=== PATIENT | female | born 2000 | race Caucasian/White ===

== ENCOUNTER 2020-04-23 06:26 | Emergency (ER) | payer BC ==
[2020-04-23 07:51] LABS: ABSOLUTE BASOPHILS # (AUTO) 0.1 10^3/uL (0.0-0.2); ABSOLUTE EOSINOPHILS # (AUTO) 0.1 10^3/uL (0.0-0.6); ABSOLUTE LYMPHOCYTES (AUTO) 1.7 10^3/uL (0.5-4.7); ABSOLUTE MONOCYTES (AUTO) 0.7 10^3/uL (0.1-1.4); ABSOLUTE NEUT (AUTO) 5.2 10^3/uL (1.7-8.2); BASOPHILS % (AUTO) 0.7 % (0-2); EOSINOPHILS % (AUTO) 1.9 % (0-6); HEMATOCRIT 39.9 % (36.0-47.0); LYMPHOCYTES % (AUTO) 21.2 % (13-45); MEAN CORPUSCULAR HEMOGLOBIN 32.4 pg (27.0-33.4); MEAN CORPUSCULAR HGB CONC 35.1 g/dL (32.0-36.0); MEAN CORPUSCULAR VOLUME 92 fl (80-97); MONOCYTES % (AUTO) 9.6 % (3-13); PLATELET COUNT 284 10^3/uL (150-450); RED BLOOD COUNT 4.34 10^6/uL (3.72-5.28); RED CELL DISTRIBUTION WIDTH 12.4 % (11.5-14.0); SEGMENTED NEUTROPHILS % (AUTO) 66.6 % (42-78); TOTAL CELLS COUNTED % (AUTO) 100 %; WHITE BLOOD COUNT 7.8 10^3/uL (4.0-10.5)
[2020-04-23 08:16] LABS: ALBUMIN 4.2 g/dL (3.5-5.0); ALKALINE PHOSPHATASE 79 U/L (38-126); ANION GAP 7 (5-19); ASPARTATE AMINO TRANSFERASE 21 U/L (14-36); BILIRUBIN,DIRECT 0.1 mg/dL (0.0-0.4); BILIRUBIN,TOTAL 0.4 mg/dL (0.2-1.3); BLOOD UREA NITROGEN 18 mg/dL (7-20); CALCIUM 9.5 mg/dL (8.4-10.2); CARBON DIOXIDE 27 mmol/L (22-30); CHLORIDE 104 mmol/L (98-107); GLUCOSE 101 mg/dL (75-110); POTASSIUM 4.2 mmol/L (3.6-5.0); TOTAL PROTEIN 7.8 g/dL (6.3-8.2)
[2020-04-23 08:44] LABS: APPEARANCE,URINE CLOUDY; BILIRUBIN,URINE NEGATIVE (NEGATIVE); COLOR,URINE YELLOW; GLUCOSE, URINE NEGATIVE (NEGATIVE); KETONES,URINE NEGATIVE (NEGATIVE); LEUKOCYTE ESTERASE,URINE SMALL (NEGATIVE); NITRITE,URINE NEGATIVE (NEGATIVE); PROTEIN,URINE 30 mg/dL (NEGATIVE); URINE SPECIFIC GRAVITY 1.025; UROBILINOGEN,URINE NEGATIVE mg/dL (<2.0)
--- NOTE | 2020-04-23 08:58 | ER Document Report ---
ED GI/ - General Chief Complaint: Abdominal Pain Stated Complaint: CRAMPING AND BLLEDING Time Seen by Provider: 04/23/20 08:35 Notes: CHIEF COMPLAINT: Pelvic pain and vaginal bleeding HPI: 19-year-old female recently treated in [place] for PID with multiple antibiotics presenting for evaluation of pelvic pain in the right ovarian region with some abnormal vaginal bleeding and discharge today. Patient finished doxycycline for 5 days ago. States she saw the BURN TABLE OPERATOR in [place] for 5 days ago. She states that she was concerned about the continued discomfort so decided to come in for evaluation today. She has not had nausea vomiting or fever. ROS: See HPI - all other systems were reviewed and are otherwise negative Constitutional: no fever or recent illness GI: no vomiting, no diarrhea : no dysuria, + vaginal discharge Integumentary: no rash Allergy: no hives MEDICATIONS: I agree with the patient medications as charted by the RN. ALLERGIES: I agree with the allergies as charted by the RN. PAST MEDICAL HISTORY/PAST SURGICAL HISTORY: Reviewed and agree as charted by RN. SOCIAL HISTORY: Reviewed and agree as charted by RN. FAMILY HISTORY: No significant familial comorbid conditions directly related to patient complaint EXAM: Reviewed vital signs as charted by RN. CONSTITUTIONAL: Alert and oriented and responds appropriately to questions. Well-appearing; well-nourished HEAD: Normocephalic; atraumatic EYES: Conjunctivae clear, sclerae non-icteric ENT: normal nose; no rhinorrhea; moist mucous membranes; pharynx without lesions noted NECK: Supple without meningismus CARD: symmetric distal pulses RESP: Normal chest excursion without splinting or tachypnea ABD/GI: Normal bowel sounds; non-distended; soft, mild tenderness across the suprapubic and right pelvis on palpation, no rebound, no guarding; no palpable organomegaly or masses : Female nurse windows systems engineer present. External genitalia normal. No skin lesions noted. Pelvic Exam: No active bleeding scant amount of bright red blood in the vaginal vault. No purulent discharge. Cervix appears normal. Positive CMT. No lesions or masses. Uterus normal size and non tender. Right/Left adnexa normal size and moderately tender on the right r. BACK: The back appears normal and is non-tender to palpation, there is no CVA tenderness EXT: Normal ROM in all joints; non-tender to palpation; no cyanosis, no effusions, no edema SKIN: Normal color for age and race; warm; dry; good turgor; no acute lesions noted NEURO: Moves all extremities equally; Motor and sensory function intact PSYCH: The patient's mood and manner are appropriate. Grooming and personal hygiene are appropriate. MDM: 19-year-old female recently treated for PID presenting for pelvic pain with abnormal vaginal bleeding. Had abnormal vaginal bleeding a month ago as well. Initial screening labs do not show acute abnormalities. She is tender on her pelvic exam. Awaiting ultrasound report to evaluate for TOA although torsion less likely - Related Data Allergies/Adverse Reactions: No Known Allergies Allergy (Unverified 04/23/20 06:40) Past Medical History - Social History Smoking Status: Never Smoker Frequency of alcohol use: Occasional Drug Abuse: None Family History: Reviewed & Not Pertinent Physical Exam - Vital signs Vitals: Temp Pulse Resp BP Pulse Ox 98.2 F 97 16 113/66 100 04/23/20 06:35 04/23/20 06:35 04/23/20 06:35 04/23/20 06:35 04/23/20 06:35 Course - Re-evaluation Re-evalutation: 04/23/20 10:54 Patient appears to have both UTI, vaginitis and questionable PID she states she finished her antibiotics 3 weeks ago and is still having symptoms. She indicates that she will follow with her [facility] BURN TABLE OPERATOR providers. Patient will be started on Flagyl and doxycycline for PID, I will add a culture to the urine as she will be on doxycycline to see if she needs to have another antibiotic added for this. We will not start her on 3 antibiotics at this time pending her culture results. She will follow up with her DRIVE TESTER in 1 to 2 days for recheck - Vital Signs Vital signs: Temp Pulse Resp BP Pulse Ox 98.2 F 97 16 113/66 100 04/23/20 06:35 04/23/20 06:35 04/23/20 06:35 04/23/20 06:35 04/23/20 06:35 - Laboratory Results Result Diagrams: 04/23/20 07:41 04/23/20 07:41 Laboratory Results Interpreted: 04/23/20 07:58 Urine Protein 30 H Urine Blood MODERATE H Ur Leukocyte Esterase SMALL H Critical Laboratory Results Reviewed: No Critical Results - Radiology Results Critical Radiology Results Reviewed: No Critical Results Discharge - Discharge Clinical Impression: PID (acute pelvic inflammatory disease) UTI (urinary tract infection) Qualifiers: Urinary tract infection type: acute cystitis Hematuria presence: with hematuria Qualified Code(s): N30.01 - Acute cystitis with hematuria Vaginitis Qualifiers: Chronicity: acute Qualified Code(s): N76.0 - Acute vaginitis Condition: Stable Disposition: HOME, SELF-CARE Additional Instructions: Follow-up with your BURN TABLE OPERATOR as discussed and 2 days by phone to discuss further evaluation and management. Take the antibiotics and pain medications as prescribed no driving if taking narcotics for pain. If you have worsening symptoms, fever, vomiting return to the emergency department for reevaluation Prescriptions: Doxycycline Monohydrate 100 mg PO BID #28 capsule Metronidazole [Flagyl 500 mg Tablet] 500 mg PO BID #28 tablet Hydrocodone/Acetaminophen [Welsh 5-325 mg Tablet] 1 tab PO Q4 PRN #15 tablet PRN Reason:
[2020-04-23 09:54] LABS: BACTERIA (WET MOUNT) 3+ BACTERIA SEEN; RBCS (WET MOUNT) 1+ RBCS SEEN; T.VAGINALIS (WET MOUNT) NO TRICHOMONAS SEEN; WBCS (WET MOUNT) NO WBCS SEEN; YEAST (WET MOUNT) NO YEAST SEEN
[2020-04-23 09:55] LABS: EPITHELIALS (WET MOUNT) 3+ EPITHELIALS SEEN
--- NOTE | 2020-04-23 10:02 | RADIOLOGY REPORT (SQ) ---
EXAM DESCRIPTION: U/S NON OB PEL TV W/DOPPLER IMAGES COMPLETED DATE/TIME: 04/23/2020 9:28 am REASON FOR STUDY: pelvic pain COMPARISON: None. TECHNIQUE: Dynamic and static grayscale images acquired of the pelvis via transvaginal approach and recorded on PACS. Additional selected color Doppler and spectral images recorded. LIMITATIONS: None. FINDINGS: UTERUS: Normal contours. No mass. Color Doppler interrogation suggests diffuse hyperemia . ENDOMETRIAL STRIPE: No focal or generalized thickening. No masses. No abnormalities on color Doppler interrogation. CERVIX: No nabothian cysts. A small amount of free fluid is seen within the endocervical canal RIGHT OVARY AND DOPPLER: Normal size. No worrisome masses. Normal arterial vascular flow without evid ence for torsion. LEFT OVARY AND DOPPLER: Normal size. No worrisome masses. Normal arterial vascular flow without evide nce for torsion. FREE FLUID: None noted. OTHER: No other significant finding. MEASUREMENTS: UTERUS: 6.1 x 3.8 x 2.7 cm ENDOMETRIAL STRIPE: 0.3 cm RIGHT OVARY: 3.2 x 2.0 x 2.0 cm LEFT OVARY: 2.5 x 1.9 x 1.6 cm IMPRESSION: Hyperemic appearance of the uterus with a small amount of fluid seen within the endocerv ical canal in the setting of reported recent diagnosis with pelvic inflammatory disease (reportedly 1 month ago) may represent recurrent versus residual disease. TECHNICAL DOCUMENTATION: JOB ID: [id number] [employer]- All Rights Reserved Rev Reading location - IP/workstation name: [email or web address]
[2020-04-23] MEDS ORDERED: LIDOCAINE 1% INJ (10 MG/ML) 10 ML MDV INJ ONE (10:48)
[2020-04-23] MEDS ORDERED: DOXYCYCLINE HYCLATE 100 MG TABLET PO ONE (10:48)
[2020-04-23] MEDS ORDERED: CEFTRIAXONE INJ 250 MG VIAL IM ONE (10:48)
[2020-04-23] MEDS ORDERED: METRONIDAZOLE 500 MG TABLET PO ONE (10:49)
[2020-04-23 11:17] VITALS: BP 97/50
[2020-04-23 11:17] LABS: CHLAM PCR NOT DETECTED (NOT DETECT)
== END 2020-04-23 11:28 | disposition home or self-care (01) ==
LOC: ER 06:26
DX: N30.01 Acute cystitis with hematuria (principal); N76.0 Acute vaginitis; N73.9 Female pelvic inflammatory disease, unspecified; R10.9 Unspecified abdominal pain; R10.2 Pelvic and perineal pain; N93.9 Abnormal uterine and vaginal bleeding, unspecified
CPT/HCPCS: 99285; 96372; 36415; 87086; 87210; 84702; 83690; 85025; 80053; 81001; 87491; 87591; 76830; 93976; J0696